=== PATIENT | male | born 1985 | race African-American/Black ===

== ENCOUNTER 2022-03-05 11:45 | Emergency (ER) | payer OTHER ==
[~2022-03-05] VITALS: Ht 165.1 cm; Wt 118.2 kg
[2022-03-05 11:55] VITALS: BP 127/68; PULSE 89; TEMP 98.8
[2022-03-05] MEDS ORDERED: DOXYCYCLINE 10100 MG PO (12:16)
== END 2022-03-05 12:23 | disposition home or self-care (01) ==
LOC: COL.ER 11:45
DX: L03.311 Cellulitis of abdominal wall (principal); Z28.310 Unvaccinated for COVID-19